=== PATIENT | female | born 1970 | race American Indian/Alaskan Native ===

== ENCOUNTER 2020-08-22 10:54 | Emergency (ER) | payer SELFPAY ==
[2020-08-22] MEDS ORDERED: IBUPROFEN 600 MG TAB PO ONE (11:24)
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
[2020-08-22 14:31] VITALS: BP 118/74
== END 2020-08-22 14:30 | disposition home or self-care (01) ==
LOC: ED 10:54
DX: R07.81 Pleurodynia (principal); F17.200 Nicotine dependence, unspecified, uncomplicated; F12.90 Cannabis use, unspecified, uncomplicated; Z79.899 Other long term (current) drug therapy; Z98.890 Other specified postprocedural states